=== PATIENT | female | born 1960 | race Caucasian/White ===

== ENCOUNTER 2017-08-24 11:24 | Emergency (ER) | payer OTHER ==
[~2017-08-24] VITALS: Ht 144.8 cm; Wt 83.0 kg
[~2017-08-24 11:24] MED LIST: AMLO10 PO; HYDRA25 PO; LOPR50TA12 PO
[2017-08-24 11:28] VITALS: BP 255/126; PULSE 106; RESP 20; TEMP 98.3; O2SAT 96
[2017-08-24] MEDS ORDERED: METOPROLOL TARTRATE 50 MG TAB PO ONE (11:45)
--- NOTE | 2017-08-24 11:46 | PD ---
HPI Chief Complaint: Cold / Flu Symptoms Time Seen by Provider: 11:32 Travel History International Travel<30 days: No Contact w/Intl Traveler<30days: No Traveled to known affect area: No History of Present Illness HPI Patient is a 57-year-old female presents emergency department for evaluation of cough congestion over the past few days. Patient states multiple coworkers been sick work and she is concerned because she's been diagnosed with pneumonia in the past. No fevers no shortness of breath no abdominal pain no rash. States her symptoms are mild, for the past few days, gradually worsening, context as above. Of note the patient has been diagnosed with hypertension past , she stopped taking her medications because it made her leg swell and became her insurance has not followed up with primary care physician in some time. She denies any chest pain or decreased urination blood in her urine headaches nausea vomiting. PFSH Past Medical History Asthma: No Anxiety: Yes Depression: Yes Heart Rhythm Problems: No Cancer: No Cardiovascular Problems: Yes (HTN) High Cholesterol: No Chest Pain: No Congestive Heart Failure: No COPD: No Cerebrovascular Accident: No Diminished Hearing: No Endocrine: No Genitourinary: No Headaches: Yes Hypertension: Yes Immune Disorder: No Musculoskeletal: Yes Neurologic: Yes (HX RICHARDS'S PALSY) Psychiatric: Yes Reproductive: No Respiratory: Yes (bronchitis/pna) Migraines: No Pneumonia: Yes Seizures: No : 2 Para: 2 Past Surgical History Abdominal Surgery: Yes (GASTRIC BYPASS) Cardiac Surgery: No Ear Surgery: No Endocrine Surgery: No Eye Surgery: Yes (LASIK SURGERY: 2006) Genitourinary Surgery: No Gynecologic Surgery: Yes (hysterectomy/breast augmentation.) Hysterectomy: Yes Oral Surgery: No Thoracic Surgery: No Other Surgery: Yes (Breast sx) Social History Alcohol Use: Yes (WINE ON OCCASION) Tobacco Use: No (OCT 2015) Substance Use: No Allergies-Medications (Allergen,Severity, Reaction): Coded Allergies: fructose (Unverified Allergy, Severe, Diarrhea, 08/24/17) lactose (Unverified Allergy, Severe, Diarrhea, 08/24/17) Milk products soybean (Unverified Allergy, Severe, Diarrhea, 08/24/17) soybean oil Reported Meds & Prescriptions Reported Meds & Active Scripts Active Metoprolol Tartrate 50 Mg Tab 25 Mg PO BID Review of Systems Except as stated in HPI: all other systems reviewed are Neg Physical Exam Narrative GENERAL: Well-developed well-nourished no obvious distress SKIN: Focused skin assessment warm/dry. HEAD: Atraumatic. Normocephalic. EYES: Pupils equal and round. No scleral icterus. No injection or drainage. ENT: No nasal bleeding or discharge. Mucous membranes pink and moist. TMs clear bilaterally, oropharynx clear and moist NECK: Trachea midline. No JVD. CARDIOVASCULAR: Regular rate and rhythm. No murmur appreciated. RESPIRATORY: No accessory muscle use. Clear to auscultation. Breath sounds equal bilaterally. GASTROINTESTINAL: Abdomen soft, non-tender, nondistended. Hepatic and splenic margins not palpable. MUSCULOSKELETAL: No obvious deformities. No clubbing. No cyanosis. No edema. NEUROLOGICAL: Awake and alert. No obvious cranial nerve deficits. Motor grossly within normal limits. Normal speech. PSYCHIATRIC: Appropriate mood and affect; insight and judgment normal. Data Data Last Documented VS Vital Signs Date Time Temp Pulse Resp B/P (MAP) Pulse Ox O2 Delivery O2 Flow Rate FiO2 08/24/17 13:03 77 20 190/104 (132) 95 08/24/17 11:28 98.3 Orders Orders Metoprolol Tartrate (Lopressor) (08/24/17 11:45) Chest, Pa & Lat (08/24/17 ) Influenzae A/B Antigen (08/24/17 11:44) Group A Rapid Strep Screen (08/24/17 11:44) Strep Culture (Group A) (08/24/17 12:10) Ed Discharge Order (08/24/17 12:36) MDM Medical Decision Making Medical Screen Exam Complete: Yes Emergency Medical Condition: Yes Differential Diagnosis URI, elevated blood pressure, pneumonia, hypertensive emergency excluded clinically. Narrative Course Patient roomed in emergency department, she appears well in no distress, Chest x -ray is negative. Patient has been on beta per before and given her minimal tachycardia think is an appropriate first regimen for her. We'll start her on 25 twice a day for the next month, discussed the importance of following up with a primary care physician prevent secondary organ damage from elevated blood pressure. Discussed return to ED criteria. She stable for discharge. Diagnosis Primary Impression: URI (upper respiratory infection) Qualified Codes: J06.9 - Acute upper respiratory infection, unspecified; B97.89 - Other viral agents as the cause of diseases classified elsewhere Additional Impression: Hypertension Qualified Codes: I10 - Essential (primary) hypertension Referrals: [facility] Additional Instructions: Blood pressure is important to follow as leaving it unchecked and elevated can lead to stroke or heart attack or kidney failure. Highly recommend you follow up with a regular physician or the [facility] who can manage chronic blood pressure. You have been given a script for metoprolol. This should not cause leg swelling. If you feel weak or dizzy while taking this medicine stop taking and call your doctor or return to the ER. Med/Other Pt SpecificInfo: Prescription(s) given Scripts Metoprolol Tartrate (Metoprolol Tartrate) 50 Mg Tab 25 MG PO BID, #60 TAB 0 Refills Prov: Jameson Chinchilla MD 08/24/17 Disposition: 01 DISCHARGE HOME Condition: Stable Jameson Chinchilla MD Aug 24, 2017 11:46
[2017-08-24 12:14] VITALS: BP 207/107; PULSE 95; RESP 20; O2SAT 96
--- NOTE | 2017-08-24 12:23 | RADRPT ---
EXAM DATE/TIME: 08/24/2017 11:59 [place] COMPARISON: CHEST PA & LAT, November 03, 2015, 18:03. INDICATIONS : Productive cough MEDICAL HISTORY : None. SURGICAL HISTORY : None. ENCOUNTER: Initial ACUITY: 1 day PAIN SCORE: 0/10 LOCATION: Bilateral chest FINDINGS: Mild interstitial prominence accentuated by poor inspiratory effort. No focal pleural or parenchymal opacities. Cardiomediastinal contours are within normal limits. Bony thorax is intact. CONCLUSION: 1. No acute abnormality or significant interval change. Aram Murry MD on August 24, 2017 at 12:20 Board Certified Radiologist. This report was verified electronically.
[2017-08-24] MEDS ORDERED: METO50TA PO (12:33)
[2017-08-24 13:03] VITALS: BP 190/104
== END 2017-08-24 13:07 | disposition home or self-care (01) ==
LOC: PHED 11:24
DX: J06.9 Acute upper respiratory infection, unspecified (principal); B97.89 Other viral agents as the cause of diseases classified elsewhere; I10 Essential (primary) hypertension
CPT/HCPCS: 71020; 87081; 87804; 87880; 99284